=== PATIENT | male | born 1975 | race Caucasian/White ===

== ENCOUNTER → 2016-08-03 | Outpatient (CLI) | payer OTHER ==
[~2016-08-03] MED LIST: IBUPROFEN800 MG PO; NORCO 7.5-3251 EACH PO
== END ==
LOC: US 07-29 10:30
DX: R10.11 Right upper quadrant pain (principal); K82.8 Other specified diseases of gallbladder
CPT/HCPCS: 76705

== ENCOUNTER → 2016-08-08 | Day surgery (SDC) | payer OTHER | END | disposition home or self-care (01) | LOC: OR 12:17 | PROVIDERS: Surgery | PROC: 0FT44ZZ Resection of Gallbladder, Percutaneous Endoscopic Approach (ICD-10-PCS; principal; 2016-08-08 13:15) | DX: K81.1 Chronic cholecystitis (principal); R56.9 Unspecified convulsions; D68.9 Coagulation defect, unspecified; F17.210 Nicotine dependence, cigarettes, uncomplicated; G43.909 Migraine, unspecified, not intractable, without status migrainosus; Z88.0 Allergy status to penicillin; Z88.8 Allergy status to other drugs, medicaments and biological substances; Z79.899 Other long term (current) drug therapy; Z82.49 Family history of ischemic heart disease and other diseases of the circulatory system; Z82.0 Family history of epilepsy and other diseases of the nervous system | CPT/HCPCS: J1100; J1885; J2250; J2405; J3010; J7030; J7120; Q9962 ==

== ENCOUNTER → 2016-11-17 | Outpatient (CLI) | payer OTHER | LOC: US 09:19 | DX: R10.11 Right upper quadrant pain (principal) | CPT/HCPCS: 76705 ==

== ENCOUNTER 2021-12-21 13:13 | Emergency (ER) | payer OTHER ==
[~2021-12-21 13:13] MED LIST changes: +NORCO 10-325 T1 EACH PO; +TYLENOL 500 MG500 MG PO
== END 2021-12-21 15:44 | disposition left against medical advice (07) ==
LOC: ER1 13:13
DX: M25.512 Pain in left shoulder (principal); R20.2 Paresthesia of skin; F17.210 Nicotine dependence, cigarettes, uncomplicated; Z88.0 Allergy status to penicillin
CPT/HCPCS: 73030; 96372; 99283; J1885